=== PATIENT | male | born 1940 | race Caucasian/White ===

== ENCOUNTER → 2024-10-20 07:11 | Outpatient (REF) | payer OTHER, SELFPAY | LOC: HWRAD 07:11 | PROVIDERS: ATTENDING PHYSICIAN Internal Medicine Cardiovascular Disease; FAMILY PHYSICIAN Internal Medicine | DX: I71.40 Abdominal aortic aneurysm, without rupture, unspecified (principal) | CPT/HCPCS: 76770 ==

== ENCOUNTER → 2024-12-02 10:34 | Outpatient (REF) | payer OTHER, SELFPAY | LOC: HWRAD 10:34 | PROVIDERS: ATTENDING PHYSICIAN Internal Medicine Cardiovascular Disease; FAMILY PHYSICIAN Internal Medicine | DX: R06.02 Shortness of breath (principal) | CPT/HCPCS: 71046 ==

== ENCOUNTER 2025-01-25 10:25 | Inpatient (IN) | payer OTHER, SELFPAY ==
[2025-01-25] VITALS (16 sets, daily range): BP systolic 111–167; BP diastolic 70–111; BMI 28.6; BMI 29.7
[2025-01-25 02:25] LABS: % Basophils 0.5 % (0-2); % Eosinophils 1.5 % (0-6); % Immature Granulocytes 0.5 % (0-0.5); % Lymphocytes 9.3 % (20.5-51.1); % Monocytes 3.7 % (1.7-9.3); % Neutrophils 84.5 % (42.2-75.2); Absolute Basophils 0.1 10^3/uL (0-0.2); Absolute Eosinophils 0.2 10^3/uL (0-0.7); Absolute Immature Granulocytes 0.1 10^3/uL (0-0.05); Absolute Lymphocytes 1.2 10^3/uL (1.2-3.4); Absolute Monocytes 0.5 10^3/uL (0.1-0.6); Absolute Neutrophils 10.8 10^3/uL (1.4-6.5); Hematocrit 43.7 % (39.0-52.0); Hemoglobin 14.7 g/dL (13.0-18.0); Mean Corp Hgb Conc. 33.6 g/dL (33.0-37.0); Mean Corpuscular Hgb 30.4 pg (27.0-31.0); Mean Corpuscular Volume 90.5 fL (80.0-94.0); Mean Platelet Volume 9.5 fL (7.4-10.4); Nucleated Red Blood Cells % 0 % (-); Platelet Count 255 10^3/uL (130-400); Red Blood Cell Count 4.83 10^6/uL (4.70-6.10); Red Cell Dist. Width 13.2 % (11.5-14.5); White Blood Cell Count 12.8 10^3/uL (4.8-10.8)
[2025-01-25 02:28] LABS: ALT (SGPT) 24 U/L (0-50); AST (SGOT) 22 U/L (17-59); Albumin 4.2 g/dl (3.5-5.0); Alkaline Phosphatase 65 U/L (38-126); Blood Urea Nitrogen 21 mg/dl (9-20); Carbon Dioxide 28 mmol/L (22-30); Chloride 111 mmol/L (98-107); Estimated Creatinine Clearance 69 ml/min; Glucose 181 mg/dl (70-99); Potassium 3.7 mmol/L (3.5-5.1); Sodium 143 mmol/L (135-145); Total Bilirubin 0.7 mg/dl (0.2-1.3); Total Protein 6.6 g/dl (6.3-8.2); eGFR > 60.00
[2025-01-25 02:41] LABS: Troponin I 0.018 ng/ml
--- NOTE | 2025-01-25 02:50 | ED.GENMED ---
History of Present Illness
General
Chief Complaint: Chest Pain
Source: patient and previous hospital records (Hospitalization May 2023 for similar complaints of chest pain, lightheadedness. Found to have bradycardia then complete heart block required pacemaker insertion.)
Exam Limitations: none
Time Seen by Provider: 01/25/25 02:41
Nursing documentation reviewed up to this point in time: agreed with
History of Present Illness
History of Present Illness:
This is an 84-year-old gentleman with history of hypertension, hyperlipidemia, complete heart block requiring pacemaker insertion May 2023. He presents with complaints of chest pain that began around 9 PM tonight which felt somewhat like
indigestion accompanied with lightheadedness, nausea, frequent burping. He states chest discomfort and lightheadedness felt somewhat similar when he presented May 2023 and found to be bradycardic and then developed heart block.
He took [place] without relief.
No history of CAD.
Prior to tonight he has been feeling well.
He follows with Dr. Ferreira and states routine evaluation November of this year his pacemaker appeared to be malfunctioning. He was sent for chest x-ray which was reportedly unremarkable and [employer]onic factory representative adjusted his pacemaker settings.
Patient notes that he was asymptomatic at that time.
Past History
Past History
ED Past Medical History: Arrthythmia (Heart block requiring pacemaker insertion May 2023), HTN, Hypercholesterolemia and Other (Gout, BPH)
ED Past Surgical History: Cardiac (Pacemaker insertion May 2023)
Social History
Tobacco: Non-smoker
Alcohol: None
Living: with family
Employment: Retired
Family History
Family History: Other (Noncontributory)
Phy Exam
Physical Exam
Physical Exam:
GENERAL: 84-year-old gentleman appears his stated age, awake and alert, pleasant, appears in no acute distress.
EYE: anicteric
NECK: Supple, nontender, no meningismus, no significant adenopathy.
ENT: oral mucosa is moist. No rhinorrhea.
CARDIAC: Regular rate and rhythm. no murmur.
LUNGS: Clear breath sounds bilaterally, no acute respiratory distress, no wheezes/rales/rhonchi
ABDOMEN: Rotund, soft, nondistended, mild tenderness epigastric as well as right upper quadrant, no r/g, no cvat. normoactive BS.
NEUROLOGICAL: Alert and oriented x3, no focal neuro deficits.
SKIN: Warm and dry, normal color, skin intact. No rash.
MUSCULOSKELETAL: No C/C/E. peripheral pulses are full and equal b/l. No palpable tenderness.
PSYCH: Normal and appropriate interaction.
Scores
Heart Score for Chest Pain Patients
STEMI patient?: No
History: Slightly or Non-Suspicious
ECG: Normal
Age: >/= 65 years
Risk Factors: 1 or 2 Risk Factors
Troponin: </= Normal Limit
Heart Score for Chest Pain Patients: 3
Heart Score Risk: 2.5% MACE over next 6 weeks
Course
Orders/Labs/Results
Orders:
Orders
01/25/25 01:49
Electrocardiogram (*1) Urgent
Reason for Study: Chest Pain
EKG- Treatment ONCE
01/25/25 02:03
Complete Blood Count/With Diff Urgent
Comprehensive Metabolic Panel Urgent
Lipase Urgent
Troponin I Urgent
01/25/25 02:49
Add On- LAB Urgent
Tests Added?: lipase
CR Chest - 2 Views Urgent
Comment:
Reason For Exam: CP
US Abdomen Complete/Upper Urgent
Comment:
Reason For Exam: acute epigastric, RUQ pain
01/25/25 04:44
Troponin I Urgent
01/25/25 09:10
Admit Patient As Directed
Co-Sign Provider:
Level of Care: Inpatient admission
Assign to:: IVU
Physician / Group: DCA
Diagnosis: Pacemaker failure
Patient Condition: Fair
Reason for Hospitalization: Pacemaker failure, heart block, dizziness
Expected length of stay greater than two midnights?: Yes
ELOS- Estimated Length of Stay in days: 3
I certify the patient meets the requirements for IP care: Yes
Code Status As Directed
Resuscitation Status: Full Code
PRN Pain Medication Management As Directed
May give lesser potent ordered pain med per pt: Yes
preference::
Protocol:: Medication orders for pain may be administered in a
manner that supports deferring to patient preference
when the pt is:
- Requesting an ordered lesser potent pain medication.
Least to most potent pain medications are defined
as: acetaminophen < NSAID < tramadol < opioids
(morphine, oxycodone, hydromorphone).
- Requesting a lesser dose of the same medication IF
ORDERED.
- Requesting a less intrusive route of administration
if both routes are prescribed by the provider (PO <
IV).
01/25/25 09:11
Activity As Directed
Activity Level: Bedrest
Comment: Okay for bathroom privileges as long as assisted
01/25/25 09:[address] Non Medication Order As Directed
Physician Order: Please have nursing central supply technician supervisor add patient to EP lab schedule for right ventricular lead
revision with Dr Velazquez
Above order entered?: Yes
01/25/25 09:13
INT (Intravenous Needle Therapy) As Directed
Comment: #20 IV gauge catheter
Notify MD As Directed
Notify physician if: no consent on chart
Surgical Procedure As Directed
Surgical Procedure: Right ventricular lead revision
01/25/25 09:15
Foot pumps [Venous Foot Pumps] As Directed
Location: Bilateral feet
DX Deep Vein Thrombosis Video Routine
01/25/25 10:00
Allopurinol [Zyloprim] 300 mg PO DAILY
Aspirin Low Dose EC [Aspir Low (Enteric Coated)] 81 mg PO DAILY
Finasteride [Proscar] 5 mg PO DAILY
Losartan [Cozaar] 50 mg PO DAILY
01/25/25 22:00
Fenofibrate 145 [Tricor] 145 mg PO HS
01/26/25 06:00
Echo 2D MMode Color/Doppler IN AM
Reason for Study: RV lead dislodgement
NPO
Allow oral meds: Yes
Allow clear liquids: 4hrs prior to procedure
NPO for procedure after (time): midnight
Comment: may have unrestricted clear liquid up to 4 hrs prior to scheduled procedure
01/26/25 08:00
CeFAZolin 1 GRAM [Ancef] 1 gram 0.9% Sod Chloride 500 ml Irr [Nss Irrigation Bottle] 500 ml IRRIG CATH
CeFAZolin 2 GRAM [Ancef] 2 grams in 10 ml IV CATH
Cholecalciferol (Vitamin D3) [VITAMIN D3 (cholecalciferol)] 50 mcg PO DAILY
Pravastatin Sodium [Pravachol] 80 mg PO DAILY
Abnormal Lab Results
01/25/25
02:03
WBC 12.8 H 10^3/uL
(4.8-10.8)
Abs Immat Gran (auto) 0.1 H 10^3/uL
(0-0.05)
Absolute Neuts (auto) 10.8 H 10^3/uL
(1.4-6.5)
Neutrophils % 84.5 H %
(42.2-75.2)
Lymphocytes % 9.3 L %
(20.5-51.1)
Chloride 111 H mmol/L
(98-107)
BUN 21 H mg/dl
(9-20)
Glucose 181 H mg/dl
(70-99)
01/25/25 02:03
01/25/25 02:03
Vital Signs
Initial and Last Documented VS:
Initial Vital Signs
Pulse BP Pulse Ox
45 154/111 93
01/25/25 02:01 01/25/25 02:01 01/25/25 02:01
Last Documented Vital Signs
Temp Pulse Resp BP Pulse Ox
98.9 F 70 20 143/72 94
01/25/25 22:30 01/25/25 22:30 01/25/25 22:30 01/25/25 22:30 01/25/25 22:30
MDM/Problems Addressed
Differential Diagnosis Includes:
Concern for ACS, pacemaker malfunction, cholecystitis, pancreatitis, GERD.
Chronic conditions affecting care: HTN and Arrhythmia
*Radiology
Radiology exam reviewed: preliminary read by ED provider (Chest x-ray is unremarkable.) and radiology read reviewed
*Pulse Oximetry
Patient hypoxic: no
*EKG
Interpreted by ED Provider?: Yes
Interpretation: abnormal
Comparison EKG: changes noted
Rate: normal
Rhythm: av sequential (Near 80 to 90% AV sequential pacing with intermittent pacing without capture)
*Strategic Planning Consultant Interpretation
Rate: normal
Interpretation: abnormal
Rhythm: av sequential (AV sequential pacing with intermittent pacing without capture)
*Critical Care Note
Total Time (30-74mins, 75-104mins- exclusive of procedures): Not Applicable
Update Note
Update Note:
Patient resting comfortably.
Monitor continues to show AV sequential pacing with intermittent pacing without capture.
He remains hemodynamically stable.
Labs are unremarkable. Troponin x 2 is negative.
I have spoken with [employer] factory representative. Pacemaker interrogation shows inconsistent capturing of the right ventricular lead. This apparently has been an ongoing issue. RV lead threshold has been turned up previously. There is concerned that
RV lead needs to be replaced, adjusted versus increased RV lead threshold.
Case discussed with cardiology will plan to evaluate at the bedside and [employer] rep will evaluate at bedside.
ED Attending Note
-
Portions of this chart may have been created with voice recognition software.� Occasional wrong word or��sound alike� substitutions may have occurred due to the inherent limitations of voice recognition software.
Discharge Plan
Departure
Patient Disposition: Admit
Date of Disposition: 01/25/25
Time of Disposition: 08:50
Admit to: Telemetry
Admit to doctor: Mary Alice
Presentation/result/management discussed w/ accepting MD/DO: mary alice
Condition: Fair
Discharge Problem:
Malfunction of biventricular cardiac pacemaker
Interventions
Interventions:
*Risk Screen - Suicide Last Done: 01/25/25 02:27
*General Assessment Last Done: 01/25/25 02:26
*Neglect/Abuse Screening Last Done: 01/25/25 02:27
*ED- Fall Risk Assessment Last Done: 01/25/25 02:26
*ED COVID-19 Vaccine History Last Done: 01/25/25 07:30
*Nursing Disposition Last Done: 01/25/25 11:45
ED- Cardiac Assessment Last Done: 01/25/25 07:39
Discharge Date and Time
Discharge Date/Time: 01/25/25 11:45
[2025-01-25 03:22] LABS: Lipase 65 U/L (23-300)
[2025-01-25 05:25] LABS: Troponin I 0.017 ng/ml
--- NOTE | 2025-01-25 09:17 | CON.CAR ---
Consultation
Consultation Request
Date/Time Consultation Requested: January 25, 2025
Date/Time Consultation Performed: January 25, 2025
Requesting Provider: Emergency department
Performing Provider: Dr. Bro Velazquez
Reason for Consultation: Dizziness and pacemaker failure
Medical History
-
Chief Complaint: Dizziness
History of Present Illness:
Primary cement tester assistant is Dr. Uriah Ferreira
Patient is brought to the emergency department by his family as he was feeling well until yesterday and since that time has had intermittent bouts of sudden dizziness lasting just a second or 2.
While being monitored in the emergency department he is found to have intermittent failure of right ventricular capture from pacing and pulse.
He has a history of complete heart block having presented to [facility] June 26, 2023 with dizziness lightheadedness and near syncope as well as chest discomfort. He was found to be in heart block with frequent pauses of up to 3 to 5
seconds. Permanent pacemaker was implanted. It is noted that permanent pacemaker had been working well until his most recent office visit December 02, 2024 when it was noted that he had a significant increase in right ventricular capture threshold.
Threshold was noted to be 4.5V at 1.5 ms.
ECG on presentation today finds atrial and ventricular pacing with pacemaker functioning in DDD mode, there is intermittent failure of right ventricular output to capture.
I interrogated his dual-chamber Medtronic permanent pacemaker (Medtronic [id number] [place] XT DR CORBIN) today and found that RV threshold has further worsened.
Presently there is intermittent capture at 5.5 V@1.5 ms. There is adequate and stable ventricular sensing as well as stable atrial sensing and pacing. No significant change in lead impedances. Battery longevity is estimated at 12 years.
Chest x-ray from this morning is without significant change from his chest x-ray December 02, 2024
Laboratory studies from this morning are unremarkable
Echocardiogram June 26, 2023 finds normal left ventricular systolic function ejection fraction 60 to 65%. Aortic sclerosis without stenosis, mild tricuspid regurgitation.
Past medical history:
Complete heart block
Dual-chamber permanent pacemaker, [employer]onic, implanted June 26, 2023
Hypertension
Obesity
Dyslipidemia
Gout
History abdominal aortic aneurysm
Previous abdominal ultrasound in 2019 revealed a very small aneurysm. Abdominal ultrasound from September 2024 revealed no aneurysm.
Social History
Tobacco: Non-Smoker
Alcohol: Occasional
Drug: None
Personal:
Living: With Family
Employment: Retired
Family History
Family History: Reviewed & Not Pertinent
Allergies / Home Medications
Allergy/AdvReac Type Severity Reaction Status Date / Time
No Known Allergies Allergy Verified 01/25/25 01:49
�Medication �Instructions �Recorded �Confirmed �Type
allopurinol 300 mg tablet 300 mg PO DAILY Gout 06/26/23 06/26/23 History
aspirin 81 mg tablet,delayed 81 mg PO DAILY Blood Clot 06/26/23 06/26/23 History
release Prevention/Tx
cholecalciferol (vitamin D3) 50 50 mcg PO DAILY Supplement 06/26/23 06/26/23 History
mcg (2,000 unit) tablet (Vitamin
D3)
fenofibrate 160 mg tablet 160 mg PO HS High Cholesterol 06/26/23 06/26/23 History
finasteride 5 mg tablet 5 mg PO DAILY prostate issues 06/26/23 06/26/23 History
pravastatin 80 mg tablet 80 mg PO DAILY High Cholesterol 06/26/23 06/26/23 History
losartan 50 mg tablet 50 mg PO DAILY #30 tabs 06/27/23 Rx
Review of Systems
-
History Source: Patient
All other systems: Negative unless noted
Constitutional: No Symptoms
EENT: No Symptoms
Respiratory: No Symptoms
Cardiac: Other (Intermittent dizziness)
Abdomen/GI: No Symptoms
: No Symptoms
Musculoskeletal: No Symptoms
Skin: No Symptoms
Neurological: Dizzy
Endocrine: No Symptoms
Hematologic/Lymphatic: No Symptoms
Physical Exam
Vital Signs
Temp Pulse Resp BP Pulse Ox
97.4 F 67 20 141/75 96
01/25/25 07:28 01/25/25 08:00 01/25/25 08:00 01/25/25 08:00 01/25/25 07:39
Lab Results
01/25/25 02:03
01/25/25 02:03
Troponin I 0.017 ng/ml 01/25/25 04:44
Physical Exam
General: Well Developed, Well Nourished, No Apparent Distress and Other (Obese)
HEENT: Normocephalic, Anicteric and Moist Mucous Membranes
Respiratory: Clear and Non Labored Respirations
Cardiac: S1/S2 (No S3 and no S4, there is a grade 1/6 apical holosystolic murmur no rubs. PMI is normally placed.) and Regular Rhythm
Breast: Deferred by me
GI: Soft, Non Tender, Non Distended and Normal Bowel Sounds
Rectal: Deferred by Provider
Musculoskeletal: No Clubbing, No Cyanosis and Edema (There is trace pretibial edema bilateral)
Skin: Warm and Dry
Neuro: Awake, Alert, Oriented and AO x 3
Psych: Calm
Impression / Plan
-
Assessment:
Complete heart block
Dual-chamber permanent pacemaker, Medtronic, implanted June 26, 2023
Hypertension
Obesity
Dyslipidemia
Gout
History abdominal aortic aneurysm
Previous abdominal ultrasound in 2019 revealed a very small aneurysm. Abdominal ultrasound from September 2024 revealed no aneurysm.
Echocardiogram June 26, 2023 finds normal left ventricular systolic function ejection fraction 60 to 65%. Aortic sclerosis without stenosis, mild tricuspid regurgitation.
Recommendations:
He is symptomatic from intermittent failure of right ventricular pacing output to capture.
At his office visit December 02, 2024 there was concern regarding worsened RV capture threshold but felt overall to be adequate. Chest x-ray was obtained and noted overall fluoroscopic appearance stability.
I interrogated his dual-chamber Medtronic permanent pacemaker (Medtronic [id number] [place] XT DR CORBIN) today and found that RV threshold has further worsened.
Presently there is intermittent capture at 5.5 V@1.5 ms. There is adequate and stable ventricular sensing as well as stable atrial sensing and pacing. No significant change in lead impedances. Battery longevity is estimated at 12 years.
Given worsening right ventricular capture threshold and now with symptomatic failure to capture, will admit patient and plan for attempted RV lead revision or implantation of a new RV lead tomorrow.
In the meantime I did maximize right ventricular output to 6 V at 1.5 ms. Of note there is no significant change in capture threshold between unipolar and bipolar pacing.
I explained this to the patient and his who is at bedside. All of their questions have been answered.
Will also check echocardiogram in the morning
Data Reviewed
-
EKG: Tracing Personally Visualized and interpreted
Radiology: Image Personally Visualized and interpreted
Medical Tests (Nuc Med, Echo etc): Report Reviewed by me
Labs: Labs Reviewed by me, Discussed with Patient and Discussed with Family
Old Records: Reviewed
Total Time Spent with Patient (in minutes): 80
--- NOTE | 2025-01-25 10:35 | W.PN.UPDATE ---
Update Note
Progress Note Update
Interrogation of dual-chamber permanent pacemaker:
I interrogated his dual-chamber Medtronic permanent pacemaker (Medtronic [id number] [place] XT DR CORBIN) today and found that RV threshold has further worsened.
Presently there is intermittent capture at 5.5 V@1.5 ms. There is adequate and stable ventricular sensing as well as stable atrial sensing and pacing. No significant change in lead impedances. Battery longevity is estimated at 12 years.
I reprogrammed the ventricular output to maximal energy of 6 V and 1.5 ms
Maintained MVP pacing mode
[2025-01-25] MEDS: ASPIR LOW (ENTERIC COATED) 81 MG PO (12:59)
[2025-01-25] MEDS: COZAAR 50 MG PO (12:59)
[2025-01-25] MEDS: PROSCAR 5 MG PO (13:00)
[2025-01-25] MEDS: ZYLOPRIM 300 MG PO (13:00)
--- NOTE | 2025-01-25 15:13 | PTCARENOTE ---
Received pt from the ED. Pt 100%V-paced, VSS. Discussed all nursing measures w/ pt. Discussed plan for pacemaker revision on 01/26/25. Will monitor.
[2025-01-25] MEDS: TRICOR 145 MG PO (22:31)
--- NOTE | 2025-01-25 23:34 | PTCARENOTE ---
Pt rec'd at change of shift resting in bed. no complaints. 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 Pt aware of npo status after mn
[2025-01-26] VITALS (16 sets, daily range): BP systolic 122–153; BP diastolic 74–92
[2025-01-26] MEDS: COZAAR 50 MG PO (07:53)
[2025-01-26] MEDS: PROSCAR 5 MG PO (07:53)
[2025-01-26] MEDS: PRAVACHOL 80 MG PO (07:53)
[2025-01-26] MEDS: ASPIR LOW (ENTERIC COATED) 81 MG PO (07:53)
[2025-01-26] MEDS: VITAMIN D3 (cholecalciferol) 50 MCG PO (07:53)
[2025-01-26] MEDS: ZYLOPRIM 300 MG PO (07:53)
--- NOTE | 2025-01-26 10:43 | CM ---
Reviewed chart. Met with Mr. Toribio to review discharge plans. He states prior to admission he resides with his spouse and son in a three story home with ten steps to enter. He states he has a full flight of steps to get to bedroom/full bathroom.
He states prior to admission he was independent with ambulation and adls. He states he has a single point cane at home that he uses when needed. He states he has a prescription plan and uses [facility]. Medical work-up in progress. The
discharge plan is to return home with his spouse and son when medically stable.
--- NOTE | 2025-01-26 15:43 | ITS.CL.PACE ---
Ammunition Supervisor - Pacemaker Implant
Pacemaker Implant
Procedure Report:
PACEMAKER GENERATOR CHANGE
Date of Procedure: January 26, 2025
Primary vegetable sorter: Dr. Uriah Ferreira
INDICATION FOR PROCEDURE:
He has symptomatic intermittent complete heart block. He underwent dual-chamber permanent pacemaker implantation in April 2023. He then presented to the office December 02, 2024 with dizziness and was noted to have intermittent failure of right
ventricular capture due to elevated capture threshold. RV pacing output was increased. He then presented to [facility] emergency department January 25, 2025 with recurrent dizziness and documented intermittent failure of right ventricular
output to capture. RV pacing output was then maxed out and there is still intermittent failure to capture. He is brought to the electrophysiology laboratory today for placement of a new right ventricular lead.
PROCEDURES:
Implantation of right ventricular pacing lead
The patient was prepped and draped in sterile fashion.
Left upper extremity venography was performed to assess for patency of the left central venous vascular system. This shows stenotic but not completely occluded vein at the axillary/subclavian junction with marked tortuosity. Several attempts were
made to access the vein with a micropuncture kit. Venous return could be obtained but the micropuncture wire could not be advanced beyond the stenotic area. It was then attempted to pass a BMW wire. The tip of the wire could be advanced beyond
the occlusive area to the superior vena cava and into the right atrium but could not be advanced further so that the stiffer portion of the wire was intravascular. This would then not allow passage of a dilator and sheath system so it was decided
to abandon this attempt. As the wire was being withdrawn, the wire sheared off and is partially extravascular at the insertion site but intravascular otherwise with this tip down to the SVC/RA. Next, a Cook needle was used for subclavian
venipuncture, puncturing but you are on the stenotic and tortuous region. This was successful and allowed continuation of the procedure. An incision was made to enter the pocket and access the guidewire. An incision was made to access the device
and leads. Seldinger technique was used to place a long 7 [place] sheath.
Fluoroscopy was used to determine likely anatomic site for left bundle branch pacing. The Medtronic C315 sheath was used to deliver the Medtronic 3830 Selectsecure pacing lead with the helix exposed just exposed from the sheath tip during continuous
monitoring when pacemapping the septum during gentle clockwise rotation to obtain a paced QRS morphology of a W pattern in lead V1. Ultimately, once the final suspected optimal site was identified, lead deployment was performed with several rapid
rotations as paced QRS morphology was intermittently monitored until a paced QRS complex in lead V1 demonstrated development of an R wave (qR).
Unipolar pacing impedance dropped by approximately 100 Ohms suggesting it had reached the left ventricular subendocardial.
Unipolar pacing impedance is 800 Ohms
Unipolar pacing threshold is stable at 1.5 V @ 0.4 ms.
Final conduction system paced QRS complex duration is 100 ms
LVAT is 90 ms and peak V5 -> peak V1 timing is 35 ms
There is QRS transition to LVSP / selective LBBP during threshold testing
The failed right ventricular lead was from the generator and capped.
The new pacing lead was attached to the generator.
Once testing (see below) showed adequate and stable function, the leads were secured using the suture sleeves. The pocket was liberally irrigated with antibiotic solution. The leads were connected to the generator header and the leads and
generator were placed within the pocket. Fluoroscopy confirmed stable lead position. The pocket was closed in the typical fashion.
Antibiotic pouch was used
Fluoroscopy was used to guide lead placement.
IMPLANTED:
Left Bundle: Medtronic 3830 , SN:[id number], Interventricular septum at LBB
ABANDONED:
Medtronic [id number], [id number]
RETAINED:
Medtronic [id number], SN: [id number], Left Pectoral
RA: Medtronic [id number], SN: [id number], RAA
DEVICE TESTING:
Sensing: RA 2 mV, RV 7 mV
Capture: RA 0.75 V@0.4ms, RV 0.75 V@0.4ms
Ohms: RA 418, RV 870
FINAL PROGRAMMING
Juan Pacing: AAIR+ 60-130 ppm
COMPLICATIONS:
The tip of the BMW wire sheared off and remained mostly within the vasculature with the proximal and likely extravascular/intramuscular.
Repeated fluoroscopic imaging during the case found no migration of the wire.
CONCLUSIONS:
Successful placement of new right ventricular lead as replacement for failed right ventricular pacing lead. The new lead is a left bundle branch conduction system lead providing cardiac resynchronization.
RECOMMENDATIONS:
I discussed the complication with the patient's .
We discussed some options which could be simply abandoning the retained lead tip or considering snare from below.
She tells me that she believes her would favor simply abandoning the sheared portion of the wire. He is currently still recovering from sedation and I will discuss with him further later today.
Copy to: Dr. Uriah Ferreira
--- NOTE | 2025-01-26 16:56 | PTCARENOTE ---
Pt is alert and oriented. Pt feels fine just a little tired. Pressure dressing L chest wall dry and intact.
--- NOTE | 2025-01-26 17:37 | PTCARENOTE ---
Assisted pt to bathroom and noticed him passing blood w/ urine. Pt denies any dysuria or difficulty voiding. Pt says he had some hematuria this morning prior to procedure as well but did not tell anyone.
[2025-01-26] MEDS: FLUSH (NSS) 1 FLUSH IV (21:01)
[2025-01-26] MEDS: TRICOR 145 MG PO (21:01)
[2025-01-26] MEDS: ANCEF 5 IV (21:01)
--- NOTE | 2025-01-26 23:24 | PTCARENOTE ---
Received pt @ change of shift. AAOx3. VSS-- NSR with 1st degree AV block, occasional pacing on monitor. Immobilizer in place, left anterior chest wall has pressure dressing. Post pacer chest x-ray and EKG completed. Discussed using urinal for
monitoring blood in urine-- verbalizes agreement, but has not used urinal, yet. Discussed being NPO @ midnight for possible lead retrieval and plan of care for evening. Pt verbalizes understanding. Call [facility] within reach.
[2025-01-27] VITALS (17 sets, daily range): BP systolic 137–177; BP diastolic 75–145
[2025-01-27] MEDS: ANCEF 5 IV (05:13)
[2025-01-27 05:28] LABS: Hematocrit 42.9 % (39.0-52.0); Hemoglobin 14.3 g/dL (13.0-18.0); Mean Corp Hgb Conc. 33.3 g/dL (33.0-37.0); Mean Corpuscular Hgb 30.2 pg (27.0-31.0); Mean Corpuscular Volume 90.7 fL (80.0-94.0); Mean Platelet Volume 9.5 fL (7.4-10.4); Platelet Count 244 10^3/uL (130-400); Red Blood Cell Count 4.73 10^6/uL (4.70-6.10); Red Cell Dist. Width 13.2 % (11.5-14.5); White Blood Cell Count 13.1 10^3/uL (4.8-10.8)
[2025-01-27 06:00] LABS: Blood Urea Nitrogen 18 mg/dl (9-20); Calcium 9.4 mg/dl (8.4-10.2); Carbon Dioxide 22 mmol/L (22-30); Chloride 110 mmol/L (98-107); Estimated Creatinine Clearance 61 ml/min; Glucose 141 mg/dl (70-99); Potassium 4.4 mmol/L (3.5-5.1); Sodium 140 mmol/L (135-145); eGFR > 60.00
[2025-01-27] MEDS: PROSCAR 5 MG PO (08:26)
[2025-01-27] MEDS: VITAMIN D3 (cholecalciferol) 50 MCG PO (08:26)
[2025-01-27] MEDS: ZYLOPRIM 300 MG PO (08:26)
[2025-01-27] MEDS: ASPIR LOW (ENTERIC COATED) 81 MG PO (08:26)
[2025-01-27] MEDS: PRAVACHOL 80 MG PO (08:27)
[2025-01-27] MEDS: COZAAR 50 MG PO (08:27)
--- NOTE | 2025-01-27 12:10 | W.PN.UPDATE ---
Addendum entered and electronically signed by Thien Shin MD 01/27/25 17:07:
Please see separate cath procedure note from Dr. Wing but to summarize invasive imaging was performed via an 8 [place] right femoral venous sheath and diagnostic catheters with dye injection in the SVC/RA junction, right atrium, and IVC
demonstrating that the angioplasty wire is not in the IVC, RA or proximal SVC. Fluoroscopy would suggest a course of the right subclavian and then down a small venous vessel traversing the chest and into the mid abdomen. Given distal position
likely in a small vertebral branch distally and extravascular proximally in the left shoulder the decision was made to leave the angioplasty wire in the vessel as likely would not have any long-term sequela. I did discuss with by phone
answering all questions and addressing her concerns. Lead positions were stable pre and post procedure and the patient will be kept overnight with discharge tomorrow morning.
Original Note:
Update Note
Progress Note Update
Reviewed case findings with Dr. Velazquez this morning. BMW wire proximal tip likely in the subcutaneous tissue and distal tip noted past SVC/RA junction from yesterday. Brought patient back to lab for repeat imaging fluoroscopically this am
revealing that the proximal tip is in stable position and the distal tip is in the IVC.
Discussed with patient, IC, Dr. Velazquez and will attempt a snare of the wire from the distal tip under fluoroscopic guidance later via the femoral vein. Patient agreeable. WIll keep npo.
--- NOTE | 2025-01-27 14:01 | CM ---
Reviewed chart. Met with Mr. Toribio to review discharge plans. 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 Prior to admission he resides with his spouse and son in a three story home with ten steps to enter. He has a full flight of steps
to get to bedroom/full bathroom. Prior to admission he was independent with ambulation and adls. He has a single point cane at home to use when needed. He has a prescription plan and uses [facility]. Medical work-up in progress. The
discharge plan is to return home with his spouse and son when medically stable.
--- NOTE | 2025-01-27 17:20 | PTCARENOTE ---
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 Pt is awake/alert/conversive. R femoral dressing in place - no bleeding or edema noted. Pt understands bedrest and mobility restrictions. Paced w/ rate of 60 on monitor.
--- NOTE | 2025-01-27 18:22 | ITS.CL.PN ---
Ribbon Lapper Tender - Procedure Note
Procedure
Procedure Note:
VENOUS ANGIOGRAPHY
Date of Procedure: January 27, 2025
Referring: Thien Shin
PROCEDURES:
1. Venous Angiography
ACCESS: Right common femoral vein 8Fr. sheath, under US guidance.
Using a micropuncture and ultrasound guidance we obtained right femoral arterial access and a 8Fr vascular sheath inserted. An image of the compressible right femoral vein was saved in the permanent record. Using a J-wire a 7Fr JR4 guide catheter
was delivered to the high superior vena cava, low SVC and IVC. We performed venous angiography in each of these locations that showed that the tip of the wire is not in the IVC or SVC and thus we decided to conclude the procedure to evaluate further
with CT venogram. The 8Fr vascular sheath was removed with manual pressure for hemostasis
Closure Device: There were no immediate intra-procedural complications. The sheath was pulled in the labor commissioner and a vascular-band applied to the right wrist for radial artery hemostasis using the patent hemostasis technique.
CONCLUSIONS
1. Venous angiography howed that the tip of the wire is not in the IVC or SVC and thus we decided to conclude the procedure
RECOMMENDATIONS
1. Bedrest per protocol.
2. Consider further imaging with CT venogram as indicated.
Copy to: Thien Shin MD and Jadon Velazquez MD
Susanna Wing MD
[2025-01-27] MEDS: TRICOR 145 MG PO (21:18)
--- NOTE | 2025-01-28 00:40 | PTCARENOTE ---
Received pt @ change of shift. AAOx3, family bedside. VSS, NSR w/ 1st degree AV block and A-V pacing on monitor. Right groin clean, dry, and intact. Soft to touch, no ecchymosis or firmness. Aquacel on left chest wall, clean, dry, and intact.
Discussed plan of care for evening. Pt verbalizes understanding. Call [facility] within reach.
[2025-01-28 05:12] VITALS: BP 163/92
[2025-01-28 05:42] LABS: Mean Corp Hgb Conc. 34.1 g/dL (33.0-37.0); Mean Corpuscular Hgb 30.5 pg (27.0-31.0); Mean Corpuscular Volume 89.3 fL (80.0-94.0); Mean Platelet Volume 9.5 fL (7.4-10.4); Platelet Count 253 10^3/uL (130-400); Red Blood Cell Count 4.59 10^6/uL (4.70-6.10); Red Cell Dist. Width 13.2 % (11.5-14.5); White Blood Cell Count 12.8 10^3/uL (4.8-10.8)
[2025-01-28 06:06] LABS: Blood Urea Nitrogen 23 mg/dl (9-20); Calcium 9.4 mg/dl (8.4-10.2); Carbon Dioxide 25 mmol/L (22-30); Chloride 110 mmol/L (98-107); Estimated Creatinine Clearance 69 ml/min; Glucose 117 mg/dl (70-99); Potassium 4.3 mmol/L (3.5-5.1); Sodium 141 mmol/L (135-145); eGFR > 60.00
[2025-01-28 08:02] VITALS: BP 145/78
[2025-01-28] MEDS: ZYLOPRIM 300 MG PO (08:43)
[2025-01-28] MEDS: COZAAR 50 MG PO (08:43)
[2025-01-28] MEDS: VITAMIN D3 (cholecalciferol) 50 MCG PO (08:43)
[2025-01-28] MEDS: ASPIR LOW (ENTERIC COATED) 81 MG PO (08:43)
[2025-01-28] MEDS: PRAVACHOL 80 MG PO (08:43)
[2025-01-28] MEDS: PROSCAR 5 MG PO (08:43)
--- NOTE | 2025-01-28 09:02 | W.PN.CARDCBS ---
Addendum entered and electronically signed by Thien Shin MD 01/28/25 09:33:
Patient seen and examined
Agree with PHARMACY BILLING ADJUDICATOR note and assessment
Agree with PHARMACY BILLING ADJUDICATOR plan
Exam:
Right groin and left pacemaker site clean dry and intact
Appropriate atrial sensing and pacing, appropriate ventricular sensing and pacing on telemetry
Vitals noted
Pertinent x 3
Cor regular
Lungs clear
Reviewed chest x-ray from 2 days ago
Remainder of exam per PHARMACY BILLING ADJUDICATOR note
Impression:
Complete heart block
Dual-chamber permanent pacemaker, Medtronic, implanted June 26, 2023
RV lead dysfunction
Hypertension
Obesity
Dyslipidemia
Gout
History abdominal aortic aneurysm
Previous abdominal ultrasound in 2019 revealed a very small aneurysm. Abdominal ultrasound from September 2024 revealed no aneurysm.
Echocardiogram June 26, 2023 finds normal left ventricular systolic function ejection fraction 60 to 65%. Aortic sclerosis without stenosis, mild tricuspid regurgitation.
Plan:
He initially presented 01/25 symptomatic from intermittent failure of right ventricular pacing output to capture.
01/26/25 He underwent new RV lead placement and old RV lead capped, this procedure was complicated by tip of the catheter sheared off and remained in vasculature
01/27/25 He underwent invasive imaging with IV contrast into SVC/RA junction demonstrated the wire was not in IVC, RA or prox SVC. The wire was demonstrated to be in a small branch vessel traveling from the left shoulder through the subclavian system
over to the right subclavian system and down a small branch vessel through the chest and mid abdomen. As the wire was not immediately accessible and not intracardiac it is likely low risk for morbidity-please see our separate procedure notes from
yesterday
post procedure, site stable
CXR no PTX, leads in position
tele SR1 deg AVB, intermittently AV pacing appropriately
Activity restrictions reviewed
BP running slightly elevated, he will continue losartan and monitor
incision check 1 week at [facility]
home today
Original Note:
Today's Communication / Plan
-
stable for d/c home today
Impression / Plan
-
PCP: Luis Mirza MD
CDY: Uriah Ferreira MD
Impression:
Complete heart block
Dual-chamber permanent pacemaker, Medtronic, implanted June 26, 2023
RV lead dysfunction
Hypertension
Obesity
Dyslipidemia
Gout
History abdominal aortic aneurysm
Previous abdominal ultrasound in 2019 revealed a very small aneurysm. Abdominal ultrasound from September 2024 revealed no aneurysm.
Echocardiogram June 26, 2023 finds normal left ventricular systolic function ejection fraction 60 to 65%. Aortic sclerosis without stenosis, mild tricuspid regurgitation.
Plan:
He initially presented 01/25 symptomatic from intermittent failure of right ventricular pacing output to capture.
01/26/25 He underwent new RV lead placement and old RV lead capped, this procedure was complicated by tip of the catheter sheared off and remained in vasculature
01/27/25 He underwent invasive imaging with IV contrast into SVC/RA junction demonstrated the wire was not in IVC, RA or prox SVC. No attempt at removal at this time as it was felt there would be no long-term sequela from location of wire.
post procedure, site stable
CXR no PTX, leads in position
tele SR1 deg AVB, intermittently AV pacing appropriately
Activity restrictions reviewed
BP running slightly elevated, he will continue losartan and monitor
incision check 1 week at [facility]
home today
Progress Note - Spinner Operator
Subjective
Date of Service: January 28, 2025
denies cp, sob
Objective
Labs:
01/28/25 05:27
01/28/25 05:27
Labs
Hgb 14.0 g/dL (13.0-18.0) 01/28/25 05:27
Hct 41.0 % (39.0-52.0) 01/28/25 05:27
Plt Count 253 10^3/uL (130-400) 01/28/25 05:27
Sodium 141 mmol/L (135-145) 01/28/25 05:27
Potassium 4.3 mmol/L (3.5-5.1) 01/28/25 05:27
BUN 23 mg/dl (9-20) H 01/28/25 05:27
Creatinine 0.8 mg/dL (0.7-1.3) 01/28/25 05:27
Glucose 117 mg/dl (70-99) H 01/28/25 05:27
Vital Signs and I&O:
Vital Signs
Temp Pulse Resp BP Pulse Ox
97.6 F 80 20 145/78 95
01/28/25 08:03 01/28/25 08:43 01/28/25 08:03 01/28/25 08:43 01/28/25 08:03
Vital Signs
Temp Pulse Resp BP Pulse Ox
97.6 F 80 20 145/78 95
01/28/25 08:03 01/28/25 08:43 01/28/25 08:03 01/28/25 08:43 01/28/25 08:03
Physical Exam
Physical Exam
NAD< AOx3
S1, S2, RRR, 1/6 IRMA
CTAB, non labored, no wheeze
SNTND Bsx4
L CW site with old marked drainage, no HT
R fem site c/d/i soft, no HT
--- NOTE | 2025-01-28 09:02 | CM ---
Reviewed chart. Met with Mr. Toribio to review discharge plans. He states he is feeling well and maybe able to go home soon. He states he has been ambulating in the room. Prior to admission he resides with his spouse and son in a three story home
with ten steps to enter. He has a full flight of steps to get to bedroom/full bathroom. Prior to admission he was independent with ambulation and adls. He has a single point cane at home that he uses when needed. He has a prescription plan and
uses [facility]. Medical work-up in progress. The discharge plan is to return home with his spouse and son when medically stable.
[2025-01-28 10:28] VITALS: BP 166/85
[2025-01-28 10:29] VITALS: BP 166/82
[2025-01-28 10:30] VITALS: BP 151/85
--- NOTE | 2025-01-28 11:26 | W.DS.TRANS ---
DC Summary - Drop Wire Hanger
-
Discharge Instructions:
Discharge Diagnosis/Procedures New RV lead implant
Diet Low Cholesterol
Driving Restrictions No driving for 1 week
Instructions:
Stand-Alone Forms: DC Inst - Implanted Device
Changes to Home Medications: No
Discharge Medications:
DC Medications w/original date entered in [facility]
allopurinol 300 mg tablet 300 mg PO DAILY Gout 06/26/23
aspirin 81 mg tablet,delayed release 81 mg PO DAILY Blood Clot Prevention/Tx 06/26/23
cholecalciferol (vitamin D3) 50 mcg (2,000 unit) tablet (Vitamin D3) 50 mcg PO DAILY Supplement 06/26/23
fenofibrate 160 mg tablet 160 mg PO HS High Cholesterol 06/26/23
finasteride 5 mg tablet 5 mg PO DAILY prostate issues 06/26/23
losartan 50 mg tablet 50 mg PO DAILY #30 tabs 06/27/23
pravastatin 80 mg tablet 80 mg PO QPM High Cholesterol #0 tabs 01/28/25
Home Medication Changes
Pending Results: No
== END 2025-01-28 11:00 | disposition home or self-care (01) | DRG 261 ==
LOC: IVU 10:25
PROVIDERS: Internal Medicine Interventional Cardiology; Nurse Practitioner; ADMITTING PHYSICIAN Internal Medicine Cardiovascular Disease; EMERGENCY PHYSICIAN Emergency Medicine; FAMILY PHYSICIAN Internal Medicine
PROC: B51N1ZZ Fluoroscopy of Left Upper Extremity Veins using Low Osmolar Contrast (ICD-10-PCS; 2025-01-26)
PROC: 02HK3JZ Insertion of Pacemaker Lead into Right Ventricle, Percutaneous Approach (ICD-10-PCS; 2025-01-26)
PROC: B5181ZZ Fluoroscopy of Superior Vena Cava using Low Osmolar Contrast (ICD-10-PCS; 2025-01-27)
PROC: B5191ZZ Fluoroscopy of Inferior Vena Cava using Low Osmolar Contrast (ICD-10-PCS; 2025-01-27)
DX: T82.110A Breakdown (mechanical) of cardiac electrode, initial encounter (principal); I44.2 Atrioventricular block, complete; Y71.2 Prosthetic and other implants, materials and accessory cardiovascular devices associated with adverse incidents; E78.00 Pure hypercholesterolemia, unspecified; E66.9 Obesity, unspecified; Z68.29 Body mass index [BMI] 29.0-29.9, adult; Z86.79 Personal history of other diseases of the circulatory system; I11.9 Hypertensive heart disease without heart failure; N40.0 Benign prostatic hyperplasia without lower urinary tract symptoms; Z79.82 Long term (current) use of aspirin; Z79.899 Other long term (current) drug therapy; Z95.0 Presence of cardiac pacemaker
CPT/HCPCS: 33216; 36011; 71045; 71046; 75825; 76700; 76937; 80048; 80053; 83690; 84484; 85025; 85027; 93005; 93306; 99285; C1769; C1887; C1894; C1898; Q9967